=== PATIENT | male | born 1980 | race Caucasian/White ===

== ENCOUNTER 2016-09-13 00:34 | Emergency (ER) | payer OTHER ==
[~2016-09-13] VITALS: Ht 177.8 cm; Wt 72.6 kg
--- NOTE | 2016-09-13 00:36 | NUR ---
PATIENT WALKED INTO ER C/O LACERATION ON RIGHT HAND THAT OCURRED 1HRS PRIOR TO ARRIVAL. PATIENT WAS FLYING HIS DRONE AND PROPELLER HIT RIGHT HAND... PT IS ALERT, ORIENTED X 4, NO RESP DISTESS NOTED OR REPORTED UPON ASSESSMENT.... MD AT BEDSIDE...
[2016-09-13] MEDS ORDERED: TDAP DIPH,PERTUSS,TET VAC/PF 0.5 ML DISP.SYRIN IM ONE ×2 (01:00→01:18)
[2016-09-13] MEDS ORDERED: LET TOPICAL SOLUTION 8 ML UDC TOP ONE (01:00)
[2016-09-13] MEDS ORDERED: IBUPROFEN 800 MG TABLET PO ONE (01:15)
[2016-09-13] MEDS ORDERED: NEOMY/BACITRA/POLYMYXIN B OINT UD PACKET TP ONE ×2 (01:30→01:47)
[2016-09-13] MEDS ORDERED: IBUPROFEN 800 MG TABLET ONE (01:35)
--- NOTE | 2016-09-13 01:49 | NUR ---
Patient discharged to home in stable conditon. Written and verbal after care instructions given. Patient verbalizes understanding of instructions. Pt walked out of ER unassisted with belongings at side...
[2016-09-13 01:51] VITALS: BP 136/89
== END 2016-09-13 01:53 | disposition home or self-care (01) ==
LOC: ER 00:40
DX: S61.210A Laceration without foreign body of right index finger without damage to nail, initial encounter (principal); S60.051A Contusion of right little finger without damage to nail, initial encounter; X58.XXXA Exposure to other specified factors, initial encounter; Y92.89 Other specified places as the place of occurrence of the external cause; Y93.89 Activity, other specified; Y99.8 Other external cause status
CPT/HCPCS: 90715; A4663

== ENCOUNTER 2016-09-15 11:43 | Emergency (ER) | payer OTHER ==
[~2016-09-15] VITALS: Ht 177.8 cm; Wt 79.4 kg
--- NOTE | 2016-09-15 12:19 | NUR ---
MSE COMPLETED, PT HAD DRESSING CHANGED TO RT HAND. PT THEN D/C'D HOME, ACI GIVEN. PT AMBULATED W/O DIFF/TOOK ALL BELONGINGS.
[2016-09-15 12:20] VITALS: BP 110/60; PULSE 55; RESP 16; O2SAT 98
== END 2016-09-15 12:20 | disposition home or self-care (01) ==
LOC: ER 11:43
DX: S61.210D Laceration without foreign body of right index finger without damage to nail, subsequent encounter (principal); X58.XXXD Exposure to other specified factors, subsequent encounter; Y99.8 Other external cause status; Y92.89 Other specified places as the place of occurrence of the external cause
CPT/HCPCS: 99283; A4663

== ENCOUNTER 2018-03-14 15:55 | Emergency (ER) | payer OTHER ==
[~2018-03-14] VITALS: Ht 175.3 cm; Wt 79.4 kg
--- NOTE | 2018-03-14 16:14 | NUR ---
BIB [facility] FOR C/O CHEST PAIN. PLACED ON MONITOR. PATIENT IS AWAKE, ALERT, ORIENTED X4. IV ALREADY IN PLACE BY [facility]...
--- NOTE | 2018-03-14 16:15 | NUR ---
12 LEAD EKG DONE.... NSR
[2018-03-14] MEDS ORDERED: ONDANSETRON 4 MG/2 ML VIAL ONE (17:08)
[2018-03-14] MEDS ORDERED: HYDROMORPHONE 1 MG/1 ML DISP.SYRIN ONE (17:08)
[2018-03-14] MEDS ORDERED: HYDROMORPHONE 1 MG/1 ML DISP.SYRIN IV ONE (17:15)
[2018-03-14] MEDS ORDERED: ONDANSETRON IV *ER 4 MG/2 ML VIAL IV ONE (17:15)
--- NOTE | 2018-03-14 17:42 | NUR ---
PATIENT STATES PAIN HAS DIMINISHED. HE IS AWAKE AND ALERT. DR OATES AT BEDSIDE SPEAKING TO PATIENT
--- NOTE | 2018-03-14 17:54 | NUR ---
IV removed. Catheter intact and site benign. Pressure and 4x4 gauze applied to site. No bleeding noted.
--- NOTE | 2018-03-14 17:55 | NUR ---
DC, RX (INCLUDING PRECAUTIONS) AND FOLLOW UP INSTRUCTIONS GIVEN AND EXPLAINED TO PATIENT WHO STATES HE UNDERSTANDS ALL INSTRUCTIONS... TO DRIVE HOME. VALIUM PRECAUTIONS ALSO GIVEN
[2018-03-14 17:57] VITALS: BP 129/75
== END 2018-03-14 17:59 | disposition home or self-care (01) ==
LOC: ER 15:55
DX: R07.89 Other chest pain (principal)
CPT/HCPCS: 71045; 93005; 96374; 96375; 99283; J1170; J2405; A4663